=== PATIENT | male | born 1980 | race Caucasian/White ===

== ENCOUNTER 2016-08-03 15:12 | Emergency (ER) | payer BC, OTHER ==
[2016-08-03 15:16] VITALS: BP 141/80; PULSE 91; TEMP 98; BMI 21.1
[2016-08-03] MEDS ORDERED: KETOROLAC TROMETHAMINE 60 MG/2 ML VIAL ONE (16:20)
[2016-08-03] MEDS ORDERED: predniSONE 20 MG TABLET (UD) ONE (16:20)
[2016-08-03] MEDS ORDERED: CYCLOBENZAPRINE HCL 10 MG TABLET (FP) ONE (16:20)
[2016-08-03] MEDS ORDERED: CYCLOBENZAPRINE HCL 10 MG TABLET (FP) PO ONE (16:22)
[2016-08-03] MEDS ORDERED: predniSONE 20 MG TABLET (UD) PO ONE (16:22)
[2016-08-03] MEDS ORDERED: KETOROLAC TROMETHAMINE 60 MG/2 ML VIAL IM ONE (16:22)
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
== END 2016-08-03 16:46 | disposition home or self-care (01) ==
LOC: JERFT 15:12
PROC: 3E0233Z Introduction of Anti-inflammatory into Muscle, Percutaneous Approach (ICD-10-PCS; principal; 2016-08-03)
DX: M54.5 Low back pain (principal); G89.29 Other chronic pain; V89.2XXS Person injured in unspecified motor-vehicle accident, traffic, sequela
CPT/HCPCS: 99281-25

== ENCOUNTER 2016-09-02 08:47 | Emergency (ER) | payer BC, OTHER ==
[2016-09-02 08:54] VITALS: BMI 21.1
[2016-09-02] MEDS ORDERED: morphine CARPU-JECT 4 MG/1 ML DISP.SYRIN ONE (09:16)
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
[2016-09-02] MEDS ORDERED: morphine CARPU-JECT 4 MG/1 ML DISP.SYRIN IVPUSH ONE (09:20)
[2016-09-02 09:38] LABS: BASOPHIL 0.4 % (0-2.0); EOSINOPHIL 1.7 % (0-4.5); MCH 32.1 pg (25.7-33.7); MCHC 34.4 g/dl (32.0-35.9); MEAN CELL VOLUME 93.1 fl (80-96); MEAN PLT VOLUME 8.1 fl (7.5-11.1); PLATELET COUNT 273 K/MM3 (134-434); RDW 12.6 % (11.9-15.9); WHITE BLOOD COUNT 7.2 K/mm3 (4.0-10.0)
[2016-09-02 10:00] LABS: ALBUMIN 4.6 g/dl (3.4-5.0); ANION GAP 8 (8-16); CALCIUM 9.4 mg/dL (8.5-10.1); CO2 29 mmol/L (21-32); COCKROFT - GAULT 79.63; CREATININE 1.1 mg/dL (0.7-1.3); GLUCOSE,RANDOM 81 mg/dL (74-106); SGOT/AST 28 U/L (15-37); SGPT/ALT 26 U/L (12-78)
[2016-09-02 10:02] LABS: ALK PHOS 76 U/L (45-117); BILIRUBIN,TOTAL 0.5 mg/dL (0.2-1.0); TOT PROT 7.8 g/dl (6.4-8.2)
[2016-09-02 10:07] LABS: INR 0.98 (0.82-1.09); PROTHROMBIN TIME (PATIENT) 10.8 SEC (9.98-11.88)
[2016-09-02] MEDS ORDERED: HYDROmorphone HCL CARPU-JECT 1 MG/1 ML DISP.SYRIN IVPUSH ONE ×5 (10:39→17:16)
[2016-09-02] MEDS ORDERED: HYDROmorphone HCL CARPU-JECT 2 MG/1 ML DISP.SYRIN ONE (10:44)
[2016-09-02] MEDS ORDERED: SODIUM CHLORIDE 1,000 ML IV STA (10:58)
[2016-09-02] MEDS ORDERED: HYDROmorphone HCL CARPU-JECT 1 MG/1 ML DISP.SYRIN ONE ×3 (13:18→17:19)
[2016-09-02 15:37] VITALS: PULSE 84; TEMP 98
[2016-09-02] MEDS ORDERED: LIDOCAINE 1%/EPI 1:100000 (50 ML MULTI DOSE VIAL) ONE (16:10)
[2016-09-02 16:34] LABS: URINE APPEARANCE CLEAR; URINE BILIRUBIN NEGATIVE (NEGATIVE); URINE BLOOD NEGATIVE (NEGATIVE); URINE COLOR STRAW; URINE GLUCOSE (UA) NEGATIVE (NEGATIVE); URINE KETONE NEGATIVE (NEGATIVE); URINE LEUK ESTERASE NEGATIVE (NEGATIVE); URINE NITRITE NEGATIVE (NEGATIVE); URINE PROTEIN NEGATIVE (NEGATIVE); URINE UROBILINOGEN NEGATIVE E.U./dl (0.2-1.0)
[2016-09-02 18:29] VITALS: BP 139/95
== END 2016-09-02 18:29 | disposition home or self-care (01) ==
LOC: JER 08:47
PROC: 0HQ1XZZ Repair Face Skin, External Approach (ICD-10-PCS; principal; 2016-09-02)
PROC: 2W3FX1Z Immobilization of Left Hand using Splint (ICD-10-PCS; 2016-09-02)
PROC: 3E033NZ Introduction of Analgesics, Hypnotics, Sedatives into Peripheral Vein, Percutaneous Approach (ICD-10-PCS; 2016-09-02)
PROC: 3E0337Z Introduction of Electrolytic and Water Balance Substance into Peripheral Vein, Percutaneous Approach (ICD-10-PCS; 2016-09-02)
DX: S52.124A Nondisplaced fracture of head of right radius, initial encounter for closed fracture (principal); S52.134A Nondisplaced fracture of neck of right radius, initial encounter for closed fracture; S01.81XA Laceration without foreign body of other part of head, initial encounter; V89.9XXA Person injured in unspecified vehicle accident, initial encounter; M54.5 Low back pain; Y93.89 Activity, other specified; Y92.219 Unspecified school as the place of occurrence of the external cause; Y99.0 Civilian activity done for income or pay
CPT/HCPCS: 36415; 70450-TC; 71250-TC; 72125-TC; 72131-TC; 73030-TC-LT; 73090-TC-RT; 73110-TC-RT; 73130-TC-RT; 73552-TC-RT; 73560-TC-RT; 73590-TC-RT; 74176-TC; 80053; 81003; 85025; 85610; 86850; 86900; 86901; 99285-25

== ENCOUNTER 2018-08-03 12:16 | Emergency (ER) | payer BC, OTHER ==
[2018-08-03 12:43] VITALS: BMI 21.1
[2018-08-03] MEDS ORDERED: SODIUM CHLORIDE 1,000 ML IV STA ×2 (13:06→14:27)
[2018-08-03] MEDS ORDERED: ACETAMINOPHEN 1000 MG/100 ML VIAL (NON FORMULARY) IVPB ONE (13:06)
--- NOTE | 2018-08-03 13:24 | PDOC ---
*Physical Exam - Vital Signs Last Vital Signs Temp Pulse Resp BP Pulse Ox 99.7 F H 100 H 18 153/96 98 08/03/18 12:41 08/03/18 12:41 08/03/18 12:41 08/03/18 12:41 08/03/18 12:41 ED Treatment Course - LABORATORY CBC & Chemistry Diagram: 08/03/18 13:55 08/03/18 13:55 Medical Decision Making - Medical Decision Making 08/03/18 13:18 Pt seen by the Advanced Practice Provider under my direct supervision Ancillary studies reviewed I agree with plan as outlined by the Advanced Practice Provider OLGA LIDIA Coles *DC/Admit/Observation/Transfer Diagnosis at time of Disposition: Abdominal pain - Discharge Dispostion Disposition: HOME Condition at time of disposition: Improved - Prescriptions Prescriptions: Ibuprofen [Motrin -] 600 mg PO TID PRN #21 tablet PRN Reason: Pain Ondansetron HCl [Zofran] 4 mg PO TID PRN #12 tablet PRN Reason: Nausea And/Or Vomiting - Referrals - Patient Instructions Printed Discharge Instructions: DI for Abdominal Pain-Adult Additional Instructions: At this time I'm recommending to follow bland diet for the next 48 hours and take Zofran as needed for nausea. I also recommend taking Motrin 600 mg every 8 hours for adequate pain and fever control. Please take Nasonex or other nasal spray for nasal congestion to keep nasal passages clear. - Post Discharge Activity Forms/Work/School Notes: Back to Work
[2018-08-03] MEDS ORDERED: ACETAMINOPHEN INJECTION 100 ML IVPB ONE (13:55)
[2018-08-03 14:01] LABS: BASO % 0.1 % (0-2.0); HEMATOCRIT 49.1 % (35.4-49); HEMOGLOBIN 16.3 GM/dL (11.7-16.9); LYMPH % 2.9 % (8-40); MCH 31.3 pg (25.7-33.7); MCHC 33.1 g/dl (32.0-35.9); MEAN CELL VOLUME 94.5 fl (80-96); MEAN PLT VOLUME 8.3 fl (7.5-11.1); MONO % 4.4 % (3.8-10.2); NEUT % 92.6 % (42.8-82.8); PLATELET COUNT 269 K/MM3 (134-434); RDW 12.4 % (11.9-15.9); WHITE BLOOD COUNT 18.7 K/mm3 (4.0-10.0)
[2018-08-03 14:11] LABS: EPI CELLS 0.4 /HPF (0-5/HPF); PH,URINE 5.5 (5.0-8.0); URINE APPEARANCE CLEAR; URINE BACTERIA 2.9 /hpf (NEGATIVE); URINE BILIRUBIN NEGATIVE (NEGATIVE); URINE CASTS 3 /lpf (0-8); URINE COLOR YELLOW; URINE GLUCOSE (UA) NEGATIVE (NEGATIVE); URINE KETONE 3+ (NEGATIVE); URINE LEUK ESTERASE NEGATIVE (NEGATIVE); URINE NITRITE NEGATIVE (NEGATIVE); URINE PROTEIN NEGATIVE (NEGATIVE); URINE RBC 1 /hpf (0-4); URINE WBC 1 /hpf (0-5)
--- NOTE | 2018-08-03 14:34 | PDOC ---
History of Present Illness - General Chief Complaint: Rectal Bleed Stated Complaint: FEVER, VOMITING/ COUGHING Time Seen by Provider: 08/03/18 13:05 History Source: Patient Exam Limitations: No Limitations - History of Present Illness Travel History: No Initial Comments: 08/03/18 14:02 37-year-old male with no Past medical to presents to ED with complaints of nasal congestion and cough for the past few weeks intermittently. Patient states though for the past week now has lower abdominal pain associate fever, chills and has had 2 bowel movements with blood streaked stool and it. Patient denies hemorrhoids, GI history, recent travel, recent weight change. Patient states also has coughed up sputum along with food products but denies throat pain, headache chest pain or shortness of breath. Timing/Duration: reports: changing over time Quality: reports: moderate Abdominal Pain Onset Location: reports: RLQ, LLQ Past History - Past Medical History Allergies/Adverse Reactions: Allergies Allergy/AdvReac Type Severity Reaction Status Date / Time No Known Allergies Allergy Verified 08/03/18 12:40 Home Medications: Ambulatory Orders Ibuprofen 600 mg PO TID #20 tablet 09/02/16 Oxycodone HCl/Acetaminophen [Percocet 5-325 mg Tablet] 1 tab PO Q6H PRN #8 tablet MDD 4 09/02/16 Ibuprofen [Motrin -] 600 mg PO TID PRN #21 tablet 08/03/18 Ondansetron HCl [Zofran] 4 mg PO TID PRN #12 tablet 08/03/18 COPD: No - Family Disease History Family Disease History: Heart Disease: Grandparents - Immunization History Immunization Up to Date: No - Suicide/Smoking/Psychosocial Hx Smoking History: Current some day smoker Have you smoked in the past 12 months: No Information on smoking cessation initiated: No Hx Alcohol Use: No Drug/Substance Use Hx: No Substance Use Type: Alcohol Patient Lives Alone: No Lives with/in: spouse/SO Review of Systems - Review of Systems Able to Perform ROS?: Yes Constitutional: Yes: Fever, Weakness HEENTM: Yes: Nose Congestion Respiratory: Yes: Cough Cardiac (ROS): No: Symptoms Reported ABD/GI: Yes: Blood Streaked Bowels, Diarrhea, Poor Appetite, Poor Fluid Intake, Abdominal cramping : No: Symptoms Reported Musculoskeletal: No: Symptoms Reported Integumentary: No: Symptoms Reported Neurological: Yes: Weakness Endocrine: No: Symptoms Reported Hematologic/Lymphatic: No: Symptoms Reported *Physical Exam - Vital Signs Last Vital Signs Temp Pulse Resp BP Pulse Ox 99.7 F H 100 H 18 153/96 98 08/03/18 12:41 08/03/18 12:41 08/03/18 12:41 08/03/18 12:41 08/03/18 12:41 - Physical Exam General Appearance: Yes: Nourished, Appropriately Dressed. No: Apparent Distress HEENT: positive: EOMI, TANO, TMs Normal, Nasal Congestion, Rhinorrhea. negative : Pharynx Normal Neck: positive: Supple Respiratory/Chest: positive: Lungs Clear, Normal Breath Sounds. negative: Respiratory Distress, Accessory Muscle Use Cardiovascular: positive: Regular Rhythm, Tachycardia. negative: Murmur Gastrointestinal/Abdominal: positive: Soft, Tenderness (right lower and left lower quadrant) Male Genitalia: positive: normal genitalia Musculoskeletal: negative: CVA Tenderness Extremity: positive: Normal Inspection Integumentary: positive: Normal Color, Warm, Moist Neurologic: positive: Motor Strength 5/5 (ambulatory) ED Treatment Course - LABORATORY CBC & Chemistry Diagram: 08/03/18 13:55 08/03/18 13:55 - ADDITIONAL ORDERS Additional order review: Laboratory Results 08/03/18 08/03/18 14:00 13:55 Lactic Acid 1.0 Urine Color Yellow Urine Appearance Clear Urine pH 5.5 Ur Specific Urania 1.022 Urine Protein Negative Urine Glucose (UA) Negative Urine Ketones 3+ H Urine Blood Trace Urine Nitrite Negative Urine Bilirubin Negative Urine Urobilinogen 1.0 Ur Leukocyte Esterase Negative Urine WBC (Auto) 1 Urine RBC (Auto) 1 Urine Casts (Auto) 3 U Epithel Cells (Auto) 0.4 Urine Bacteria (Auto) 2.9 08/03/18 13:55 RBC 5.20 MCV 94.5 MCHC 33.1 RDW 12.4 MPV 8.3 Neutrophils % 92.6 H D Lymphocytes % 2.9 L D Monocytes % 4.4 Eosinophils % 0.0 D Basophils % 0.1 - RADIOLOGY Radiology Studies Ordered: Category Date Time Status ABDOMEN & PELVIS CT WITH CONTR [CT] Stat CT Scan 08/03/18 13:06 Ordered - Medications Given in the ED: ED Medications Discontinued Medications Generic Name Dose Route Start Last Admin Trade Name Freq PRN Reason Stop Dose Admin Acetaminophen 1,000 mg 08/03/18 13:06 08/03/18 13:50 Ofirmev Injection - IVPB 08/03/18 13:07 1,000 mg ONCE ONE Administration Sodium Chloride 1,000 mls @ 1,000 mls/hr 08/03/18 13:06 08/03/18 13:50 Normal Saline - IV 08/03/18 14:05 1,000 mls/hr ASDIR STA Administration Medical Decision Making - Medical Decision Making 08/03/18 14:03 Complaint: URI symptoms now with GI complaints including diarrhea and abdominal pain along with fever and chills Exam: Tachycardia and low-grade temperature lower abdominal tenderness Plan: Septic workup, fluids, IV Tylenol and abdominal CT 08/03/18 14:45 Laboratory Tests 08/03/18 08/03/18 08/03/18 13:55 13:55 14:00 WBC 18.7 H Hgb 16.3 Hct 49.1 H Absolute Neuts (auto) 17.3 H Neutrophils % 92.6 H D Lactic Acid 1.0 Urine Ketones 3+ H Urine Nitrite Negative Urine Bilirubin Negative Ur Leukocyte Esterase Negative Urine WBC (Auto) 1 Urine RBC (Auto) 1 08/03/18 17:[address] shows no evidence of enterocolitis no evidence of acute diverticulitis or appendicitis. Patient states feeling better after receiving medication. Patient be discharged home with Zofran 08/03/18 18:05 States feeling somewhat better and tolerated of bagged lunch. Patient will be discharged home with Zofran and recommendations to follow bland diet for the next 48 hours. *DC/Admit/Observation/Transfer Diagnosis at time of Disposition: Abdominal pain - Discharge Dispostion Disposition: HOME Condition at time of disposition: Improved - Referrals - Patient Instructions Printed Discharge Instructions: DI for Abdominal Pain-Adult Additional Instructions: At this time I'm recommending to follow bland diet for the next 48 hours and take Zofran as needed for nausea. I also recommend taking Motrin 600 mg every 8 hours for adequate pain and fever control. Please take Nasonex or other nasal spray for nasal congestion to keep nasal passages clear. - Post Discharge Activity
[2018-08-03 15:05] LABS: ANISOCYTOSIS 0; MACROCYTOSIS 0; PLATELET ESTIMATE NORMAL
[2018-08-03 15:20] LABS: ALBUMIN 4.5 g/dl (3.4-5.0); BILIRUBIN,TOTAL 0.8 mg/dL (0.2-1); CALCIUM 9.2 mg/dL (8.5-10.1); CREATININE 0.9 mg/dL (0.55-1.3); MAGNESIUM 2.1 mg/dL (1.8-2.4); POTASSIUM 4.1 mmol/L (3.5-5.1); TOT PROT 8.1 g/dl (6.4-8.2)
[2018-08-03 18:31] VITALS: BP 114/66; PULSE 91; TEMP 98.7
== END 2018-08-03 18:33 | disposition home or self-care (01) ==
LOC: JER 12:16
PROC: 3E033NZ Introduction of Analgesics, Hypnotics, Sedatives into Peripheral Vein, Percutaneous Approach (ICD-10-PCS; principal; 2018-08-03)
PROC: 3E0337Z Introduction of Electrolytic and Water Balance Substance into Peripheral Vein, Percutaneous Approach (ICD-10-PCS; 2018-08-03)
DX: R10.9 Unspecified abdominal pain (principal)
CPT/HCPCS: 36415; 74177-TC; 80053; 81003; 83605; 83690; 83735; 85025; 87040; 87086; 99282-25; J0131; J7030

== ENCOUNTER 2018-11-04 08:16 | Emergency (ER) | payer BC ==
[2018-11-04 08:31] VITALS: BMI 21.2
[2018-11-04] MEDS ORDERED: ACETAMINOPHEN 325 MG TABLET (FP) PO ONE (09:36)
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
[2018-11-04 09:54] VITALS: TEMP 98.1
[2018-11-04 10:52] VITALS: BP 130/78; PULSE 62
== END 2018-11-04 10:52 | disposition home or self-care (01) ==
LOC: JER 08:16
PROC: 0HQ1XZZ Repair Face Skin, External Approach (ICD-10-PCS; principal; 2018-11-04)
DX: S01.81XA Laceration without foreign body of other part of head, initial encounter (principal); W18.39XA Other fall on same level, initial encounter; Y93.89 Activity, other specified; Y92.89 Other specified places as the place of occurrence of the external cause; F32.9 Major depressive disorder, single episode, unspecified; Z87.891 Personal history of nicotine dependence
CPT/HCPCS: 70450-TC; 71046-TC-FY; 99282-25

== ENCOUNTER 2019-09-29 07:50 | Inpatient (IN) | payer BC ==
[2019-09-28 11:29] VITALS: BMI 20.2
[2019-09-29] MEDS ORDERED: ERTAPENEM SODIUM 1 GM VIAL ONE (08:25)
[2019-09-29] MEDS ORDERED: ERTAPENEM SODIUM 1 GM in SODIUM CHLORIDE 50 ML IVPB ONE (09:00)
[2019-09-29] MEDS ORDERED: MIDAZOLAM HCL 2 MG/2 ML SINGLE DOSE VIAL ONE ×2 (09:32)
[2019-09-29] MEDS ORDERED: BUPIVACAINE LIPOSOME/PF (EXPAREL) 266 MG/20 ML VIAL ONE ×2 (09:33→12:11)
[2019-09-29] MEDS ORDERED: BUPIVACAINE HCL/PF 0.25% (2.5MG/ML) 10 ML VIAL ONE (09:33)
[2019-09-29] MEDS ORDERED: PROPOFOL 20 ML ONE (10:18)
[2019-09-29] MEDS ORDERED: ROCURONIUM BROMIDE 50 MG/5 ML SYRINGE ONE (10:18)
[2019-09-29] MEDS ORDERED: fentaNYL CITRATE 250 MCG/5 ML VIAL ONE (10:18)
[2019-09-29] MEDS ORDERED: ERTAPENEM SODIUM 1 GM VIAL IVPB ONE (11:00)
[2019-09-29] MEDS ORDERED: KETAMINE HCL 200 MG/20 ML VIAL ONE (11:23)
[2019-09-29] MEDS ORDERED: HYDROmorphone HCl 2 MG/ML VIAL ONE (11:29)
[2019-09-29] MEDS ORDERED: NEOSTIGMINE METHYLSULFATE 0.5 MG/ML - 10 ML MDV ONE (12:20)
[2019-09-29] MEDS ORDERED: oxyCODONE HCL 5 MG TABLET PO PRN ×2 (12:33)
--- NOTE | 2019-09-29 12:39 | SURG ---
Surgery Top Trimmer Note Top Trimmer: Naresh Graham PA-C Date of Service: 09/29/19 Diagnosis: Colon cancer Procedure: Open closure ileostomy I was present for the entirety of the operative procedure. For further detail, please refer to operative report. Visit type - Case Type Case Type: Scheduled - Emergency Emergency Visit: No - New patient This patient is new to me today: Yes Date on this admission: 09/29/19 - Critical Care Critical Care patient: No
--- NOTE | 2019-09-29 12:39 | OP ---
Operative Note - Note: Operative Date: 09/29/19 Pre-Operative Diagnosis: colon cancer Operation: Open closure of Ileostomy Post-Operative Diagnosis: Same as Pre-op Surgeon: Tushar Gonzales Chief Specialist Leed: Naresh Graham Anesthesiologist/SHOE REPAIRER: Shane Morin Anesthesia: General Estimated Blood Loss (mls): 20 Operative Report Dictated: Yes
[2019-09-29] MEDS ORDERED: LACTATED RINGERS SOLUTION 1,000 ML IV SCH (12:45)
[2019-09-29] MEDS ORDERED: hydrALAZINE HCL 20 MG/ML VIAL ONE (12:47)
[2019-09-29] MEDS ORDERED: hydrALAZINE HCL 20 MG/ML VIAL IVPUSH ONE ×2 (12:55→13:19)
[2019-09-29] MEDS ORDERED: ONDANSETRON 4 MG/2 ML VIAL IVPUSH PRN ×2 (13:49→15:21)
[2019-09-29] MEDS ORDERED: METOPROLOL TARTRATE 5 MG/5 ML VIAL IVPUSH ONE ×2 (15:20→15:44)
[2019-09-29] MEDS ORDERED: PROMETHAZINE HCL 25 MG/1 ML VIAL IVPB PRN (15:21)
[2019-09-29] MEDS ORDERED: DEXAMETHASONE SOD PHOSPHATE 4 MG/1 ML VIAL IVPUSH PRN (15:21)
[2019-09-29] MEDS ORDERED: HYDROmorphone *PCA* 10MG/50ML DISP.SYRIN ONE (15:29)
[2019-09-29] MEDS ORDERED: HYDROmorphone *PCA* 10MG/50ML DISP.SYRIN PCA SCH (15:30)
[2019-09-29] MEDS ORDERED: HYDROmorphone *PCA* 10MG/50ML DISP.SYRIN PCA ONE (15:44)
[2019-09-30] MEDS ORDERED: ACETAMINOPHEN 1000 MG/100 ML VIAL (NON FORMULARY) IVPB ONE (05:41)
[2019-09-30 08:47] LABS: HEMATOCRIT 39.8 % (35.4-49); MCHC 32.7 g/dl (32.0-35.9); MEAN CELL VOLUME 94.9 fl (80-96); PLATELET COUNT 177 K/MM3 (134-434); RDW 12.9 % (11.9-15.9); WHITE BLOOD COUNT 8.3 K/mm3 (4.0-10.0)
--- NOTE | 2019-09-30 09:00 | PN ---
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 Much relieved. No other complications seen. Flaquita Hilton MD.
--- NOTE | 2019-09-30 09:03 | HP ---
Admitting History and Physical - Admission History of Present Illness: postop ileostomy closure - Past Medical History Cardiovascular: No: CAD, CHF, HTN Pulmonary: No: COPD Gastrointestinal: Yes: Cancer (colon) Renal/: Yes: Cancer (testicular) - Past Surgical History Past Surgical History: Yes: Colectomy, Orchiectomy - Smoking History Smoking history: Former smoker Have you smoked in the past 12 months: Yes Aproximately how many cigarettes per day: 4 If you are a former smoker, when did you quit?: 2019 - Alcohol/Substance Use Hx Alcohol Use: No Home Medications - Allergies Allergies/Adverse Reactions: Allergies Allergy/AdvReac Type Severity Reaction Status Date / Time No Known Allergies Allergy Verified 09/29/19 08:53 - Home Medications Home Medications: Ambulatory Orders Cyclobenzaprine HCl [Flexeril 10 mg] 10 mg PO PRN PRN 07/30/19 Colostomy-Ileost.set,Nonsteril [New Image Colostomy-Ileo Kit] 30 each MC DAILY #30 each 08/09/19 Review of Systems - Review of Systems Cardiovascular: denies: Chest Pain, Palpitations Respiratory: denies: Orthopnea, SOB Gastrointestinal: reports: Abdominal Pain Neurological: reports: No Symptoms Physical Examination Vital Signs: Vital Signs Temperature 99 F 09/30/19 08:29 Pulse Rate 60 09/30/19 08:29 Respiratory Rate 18 09/30/19 08:29 Blood Pressure 135/82 09/30/19 08:29 O2 Sat by Pulse Oximetry (%) 100 09/29/19 21:00 Cardiovascular: Yes: Regular Rate and Rhythm Respiratory: Yes: Regular, CTA Bilaterally Gastrointestinal: Yes: Soft, Hypoactive Bowel Sounds Wound/Incision: Yes: Other (dressing with some blood) Labs: CBC, BMP 09/30/19 07:17 Problem List - Problems (1) Colon cancer Assessment/Plan: Operative Date: 09/29/19 Pre-Operative Diagnosis: colon cancer Operation: Open closure of Ileostomy Post-Operative Diagnosis: Same as Pre-op Surgeon: Tushar Gonzales diet per surgery follow labs Code(s): C18.9 - MALIGNANT NEOPLASM OF COLON, UNSPECIFIED (2) Ileostomy status Assessment/Plan: Operative Date: 09/29/19 Pre-Operative Diagnosis: colon cancer Operation: Open closure of Ileostomy Post-Operative Diagnosis: Same as Pre-op Surgeon: Tushar Gonzales Code(s): Z93.2 - ILEOSTOMY STATUS (3) Back pain Assessment/Plan: monitor Code(s): M54.9 - DORSALGIA, UNSPECIFIED Qualifiers: Back pain location: low back pain Chronicity: chronic Back pain laterality: right Sciatica presence: with sciatica Sciatica laterality: sciatica of right side Qualified Code(s): M54.41 - Lumbago with sciatica, right side
[2019-09-30 09:19] LABS: ALBUMIN 3.5 g/dl (3.4-5.0); BILIRUBIN,TOTAL 0.9 mg/dL (0.2-1); BLOOD UREA NITROGEN 8.2 mg/dL (7-18); CALCIUM 8.4 mg/dL (8.5-10.1); CREATININE 0.7 mg/dL (0.55-1.3); POTASSIUM 3.3 mmol/L (3.5-5.1)
[2019-09-30] MEDS: ENOXAPARIN NA (PORCINE) 40 MG/0.4 ML DISP.SYRIN SQ SCH (09:29)
--- NOTE | 2019-09-30 11:19 | PN ---
Progress Note (short form) - Note Progress Note: Surgery Note: No complaints of nausea/emesis. ABd pain controlled with PANCAKE PROFESSIONAL. Vital Signs Period Temp Pulse Resp BP Sys/Calderon Pulse Ox Last 24 Hr 98.0 F-99 F 60-118 16-18 112-160/64-110 98-100 GEN: A&0x3, NAD ABD: soft, non-distended, inc tenderness. Incision, packing removed and bleeding noted from a skin edge. Applied silver nitrite and bleeding stopped, packed with gauze and applied pressure dressing. LE: no calf tenderness or swelling noted b/l CBC, BMP 09/30/19 07:17 09/30/19 07:17 A/P: 39 yo male s/p ileostomy reversal, POD#1 May begin clears OOB ambulate Packed wound with gauze/apply abdominal binder Oral/IV pain meds after tolerating clears Hypokalemia, KCL repleted oral with 40 meq D/w Dr. Cervantes
[2019-09-30] MEDS ORDERED: POTASSIUM CHLORIDE TABS 20 MEQ TABLET.ER (FP) PO ONE (11:25)
[2019-09-30] MEDS: ACETAMINOPHEN 325 MG TABLET (FP) PO PRN ×3 (11:58→21:10)
[2019-09-30] MEDS ORDERED: oxyCODONE HCL 5 MG TABLET PO PRN (14:26)
[2019-09-30] MEDS ORDERED: PCA PUMP NR ONE (14:55)
[2019-09-30] MEDS: oxyCODONE HCL 5 MG TABLET PO PRN ×2 (17:00→21:09)
[2019-10-01] MEDS: oxyCODONE HCL 5 MG TABLET PO PRN (06:48)
[2019-10-01] MEDS: ACETAMINOPHEN 325 MG TABLET (FP) PO PRN (06:48)
--- NOTE | 2019-10-01 08:26 | PN ---
Progress Note, Physician Chief Complaint: s/p closure of eliostomy History of Present Illness: feeling well BMs x3 - Current Medication List Current Medications: Active Medications Acetaminophen (Tylenol -) 650 mg PO Q4H PRN PRN Reason: FEVER Last Admin: 10/01/19 06:48 Dose: 650 mg Documented by: Dexamethasone Sodium Phosphate (Decadron Injection -) 4 mg IVPUSH ONCE PRN PRN Reason: NAUSEA AND/OR VOMITING Diphenhydramine HCl (Benadryl Injection -) 12.5 mg IVPUSH ONCE PRN PRN Reason: FOR ITCHING Enoxaparin Sodium (Lovenox -) 40 mg SQ DAILY [id number] Last Admin: 09/30/19 09:29 Dose: 40 mg Documented by: Ondansetron HCl (Zofran Injection) 4 mg IVPUSH Q4H PRN PRN Reason: NAUSEA AND/OR VOMITING Oxycodone HCl (Roxicodone -) 5 mg PO Q4H PRN PRN Reason: PAIN LEVEL 1-5 Oxycodone HCl (Roxicodone -) 10 mg PO Q4H PRN PRN Reason: PAIN LEVEL 6-10 Last Admin: 10/01/19 06:48 Dose: 10 mg Documented by: Promethazine HCl (Phenergan Injection -) 12.5 mg IVPB Q6H PRN PRN Reason: NAUSEA AND/OR VOMITING - Objective Vital Signs: Vital Signs Temperature 98.7 F 10/01/19 06:00 Pulse Rate 80 10/01/19 06:00 Respiratory Rate 18 10/01/19 06:00 Blood Pressure 135/89 10/01/19 06:00 O2 Sat by Pulse Oximetry (%) 100 09/30/19 21:00 Labs: CBC, BMP 09/30/19 07:17 09/30/19 07:17 Problem List - Problems (1) Colon cancer Code(s): C18.9 - MALIGNANT NEOPLASM OF COLON, UNSPECIFIED (2) Ileostomy status Code(s): Z93.2 - ILEOSTOMY STATUS Assessment/Plan s/p closure of eliostomy doing well Advance diet DC home this pm with VNS
[2019-10-01 09:18] LABS: BASO % 0.4 % (0-2.0); EOS % 0.2 % (0-4.5); HEMOGLOBIN 13.2 GM/dL (11.7-16.9); LYMPH % 10.2 % (8-40); MCH 31.3 pg (25.7-33.7); MCHC 33.1 g/dl (32.0-35.9); MEAN CELL VOLUME 94.6 fl (80-96); MEAN PLT VOLUME 8.3 fl (7.5-11.1); MONO % 9.8 % (3.8-10.2); NEUT % 79.4 % (42.8-82.8); PLATELET COUNT 169 K/MM3 (134-434); RBC 4.22 M/mm3 (4.00-5.60); RDW 12.8 % (11.9-15.9); WHITE BLOOD COUNT 7.4 K/mm3 (4.0-10.0)
[2019-10-01 09:48] LABS: BLOOD UREA NITROGEN 4.2 mg/dL (7-18); CALCIUM 8.8 mg/dL (8.5-10.1); CREATININE 0.7 mg/dL (0.55-1.3); POTASSIUM 3.2 mmol/L (3.5-5.1)
[2019-10-01] MEDS: ENOXAPARIN NA (PORCINE) 40 MG/0.4 ML DISP.SYRIN SQ SCH (10:08)
[2019-10-01 10:21] VITALS: TEMP 98.2
--- NOTE | 2019-10-01 11:38 | OP ---
DATE OF OPERATION: 09/29/2019 PREOPERATIVE DIAGNOSIS: Rectal cancer status post low anterior resection with ileostomy. POSTOPERATIVE DIAGNOSIS: Rectal cancer status post low anterior resection with ileostomy. PROCEDURE: Closure of ileostomy. SURGEON: Tushar Hardin MD ANESTHESIA: Naresh Graham PA-C COMPLICATIONS: None. BLOOD LOSS: Minimal, and the patient tolerated the procedure well. INDICATION: This is a 39-year-old male who presented with a rectal cancer for which he underwent preoperative neoadjuvant chemoradiation therapy followed by low anterior resection which was performed at a time in July, with a diverting ileostomy. Following that, the patient has continued to recover well. He underwent a CT scan and a barium enema to evaluate anastomosis, and at this point, given the well-healed anastomosis, he is now undergoing a closure of the ileostomy. DESCRIPTION OF PROCEDURE: He was taken to the operating room, placed in the supine position. After the induction of general anesthesia, he was prepped and draped in the usual sterile fashion. The procedure was begun with a circumferential incision around the ileostomy. Of note, the mucosa was approximated with 2-0 silk to prevent spillage into the wound during the operation. With mobilization of the skin and the subcutaneous tissue, loop ileostomy was then mobilized along with its mesentery, and sharp dissection with Metzenbaum scissors was performed to separate some dense adhesions from the fascia. This allowed us to then eventually enter into the peritoneal cavity, bringing up the whole loop of terminal ileum into the field. The end of the ileostomy itself was then transected with ASIF staplers on both side of the lumen and resected. The mesentery was divided with 2 Radha clamps and ligated with 2-0 Vicryl ties. A [id number] anastomosis was then performed using the ASIF 60, which was fired , and enterotomy was closed with a TA60. The staple line was oversewn with 3-0 Vicryl, 3-0 silk Lembert sutures, and the mesentery defect was approximated with 3-0 Vicryl interrupted sutures. The anastomosis was then delivered back into the peritoneal cavity after careful inspection for signs of integrity, and the wound was then closed by closing the posterior sheath with 0 Vicryl suture in a running fashion, and the anterior fascia was closed with No. 1 PDS in interrupted fashion. The wound was irrigated and suctioned. Two nylon mattress sutures were placed in the skin to approximate the wound without completely closing it, and the wound was packed after careful hemostasis. Sterile dressing was applied and the patient was returned to the recovery room awake and alert, in stable condition. He tolerated the procedure well. TUSHAR HARDIN M.D. [id number]
--- NOTE | 2019-10-01 12:28 | DS ---
"Physical Examination Vital Signs: Vital Signs Temperature 98.2 F 10/01/19 10:20 Pulse Rate 79 10/01/19 10:20 Respiratory Rate 18 10/01/19 10:20 Blood Pressure 154/82 10/01/19 10:20 O2 Sat by Pulse Oximetry (%) 99 10/01/19 08:46 Cardiovascular: Yes: Regular Rate and Rhythm Respiratory: Yes: Regular, CTA Bilaterally Gastrointestinal: Yes: Normal Bowel Sounds, Soft. No: Tenderness Labs: CBC, BMP 10/01/19 07:50 10/01/19 07:50 Discharge Summary Reason For Visit: OTHER SPECIFIED DISEASES OF ANUS & RECTUM Current Active Problems Colon cancer (Acute) Ileostomy status (Acute) Hospital Course: - Problems (1) Colon cancer Assessment/Plan: Operative Date: 09/29/19 Pre-Operative Diagnosis: colon cancer Operation: Open closure of Ileostomy Post-Operative Diagnosis: Same as Pre-op Surgeon: Tushar Gonzales diet per surgery follow labs Code(s): C18.9 - MALIGNANT NEOPLASM OF COLON, UNSPECIFIED (2) Ileostomy status Assessment/Plan: Operative Date: 09/29/19 Pre-Operative Diagnosis: colon cancer Operation: Open closure of Ileostomy Post-Operative Diagnosis: Same as Pre-op Surgeon: Tushar Gonzales Code(s): Z93.2 - ILEOSTOMY STATUS (3) Back pain Assessment/Plan: monitor Code(s): M54.9 - DORSALGIA, UNSPECIFIED Qualifiers: Back pain location: low back pain Chronicity: chronic Back pain lateral ity: right Sciatica presence: with sciatica Sciatica laterality: sciatica of right side Qualified Code(s): M54.41 - Lumbago with sciatica, right side Condition: Stable - Instructions Diet, Activity, Other Instructions: Dr. Gonzales's Discharge Instructions Physical activity Resume your normal everyday activity as tolerated no heavy lifting or exercise until seen by your surgeon. You may walk unlimited amounts of and climb stairs. You may resume driving the car when you feel safe and comfortable behind the wheel and no longer taking narcotics. Wound care Irrigate with NS and Pack wound with wet to dry dressing. Your leatha will be removed during your office visit. Diet There are no dietary restrictions. Eat healthy, high-fiber foods. Drink 6 to 8 glasses of liquid each day. This will assist in keeping your bowels are regular. Pain management You may take Tylenol or acetaminophen or Ibuprofen (for example, Motrin, Advil etc.) Any pain prescription medication ordered should be taken as prescribed for moderate to severe pain. Call Dr. Gonzales for any of the following: Severe pain not relieved by medication Fever of 101 or higher Excessive bleeding or drainage on dressing Inability to urinate If you experience any chest pain or shortness of breath please seek emergency treatment immediately. Call the office for a post operative appointment in 7 - 10 days. iSTOP The Drug Utilization Report below displays all of the controlled substance prescriptions, if any, that your patient has filled in the last twelve months. The information displayed on this report is compiled from pharmacy submissions to the Department, and accurately reflects the information as submitted by the pharmacies. This report was requested by: Shivam Montgomery | Reference #: [id number] Follow up with dr cai for labs to check potassium Referrals: Tushar Gonzales [Staff Physician] - Kate Cai MD [Staff Physician] - 2 Weeks Disposition: HOME - Home Medications Comprehensive Discharge Medication List: Ambulatory Orders Oxycodone HCl/Acetaminophen [Percocet 5-325 mg Tablet] 1 - 2 tab PO Q4H PRN #25 tablet MDD 12 10/01/19"
[2019-10-01] MEDS ORDERED: POTASSIUM CHLORIDE TABS 10 MEQ TABLET.ER (FP) PO ONE (12:30)
[2019-10-01 13:52] VITALS: BP 134/93; PULSE 109
--- NOTE | 2019-10-04 11:33 | PATH ---
Surgical Pathology Report Patient Name: ULISES AMBROCIO Med. Rec. #: [id number] /Age/Gender: 1980 (Age: 39) / M Account: [id number] Location: [address] [place] [address]/[facility] Taken: 09/29/2019 Received: 09/29/2019 Reported: 10/04/2019 Physicians: Tushar Gonzales M.D. Specimen(s) Received ILEOSTOMY Clinical History Closing of ileostomy Final Diagnosis ILEOSTOMY, RESECTION: PORTION OF SMALL INTESTINE AND SKIN CONSISTENT WITH ILEOSTOMY SHOWING FOCAL ACUTE AND CHRONIC INFLAMMATION, HEMORRHAGE, AND SUPERFICIAL EROSION. Electronically Signed Aydin Solano M.D. Gross Description Received in formalin labeled "ileostomy," is a 4.0 x 2.7 cm nair, elliptical portion of skin with two ora, consistent with ileostomy sites. There is a 5 cm in length portion of bowel attached to each of the ileostomy sites. The bowels have stapled margins of resection. Lens Silverer sections are submitted in 3 cassettes as follows: 1-staple lines; 7-7-mnfqchhrh sites. /09/30/2019 [facility]09/30/2019
== END 2019-10-01 14:41 | disposition home or self-care (01) | DRG 330 ==
LOC: J2C 07:50 → EDSTATUS 10:30 → J6S 17:25
PROVIDERS: ADMIT Surgery; ATTEND Family Medicine
PROC: 0DBB0ZZ Excision of Ileum, Open Approach (ICD-10-PCS; principal; 2019-09-29 10:30)
DX: C20 Malignant neoplasm of rectum (principal); C18.9 Malignant neoplasm of colon, unspecified; M54.41 Lumbago with sciatica, right side; E87.6 Hypokalemia
CPT/HCPCS: 36415; 80048; 80053; 85025; 85027; 86850; 86900; 86901; 88304-TC; 94760; J0131

== ENCOUNTER 2020-11-16 20:11 | Emergency (ER) | payer OTHER, BC ==
[2020-11-16 20:33] VITALS: BMI 19.5
[2020-11-16] MEDS ORDERED: morphine CARPU-JECT 4 MG/1 ML DISP.SYRIN IVPUSH ONE (23:19)
[2020-11-16] MEDS ORDERED: morphine SULFATE 4 MG/ML VIAL ONE (23:52)
[2020-11-17 00:58] VITALS: TEMP 97.4
[2020-11-17] MEDS ORDERED: ACETAMINOPHEN 500 MG TABLET (FP) PO ONE (04:24)
[2020-11-17] MEDS ORDERED: ACETAMINOPHEN 325 MG TABLET (FP) ONE (05:14)
[2020-11-17 05:21] VITALS: BP 113/80
[2020-11-17 07:22] VITALS: PULSE 57
== END 2020-11-17 07:23 | disposition home or self-care (01) ==
LOC: JER 20:11
PROC: 3E033NZ Introduction of Analgesics, Hypnotics, Sedatives into Peripheral Vein, Percutaneous Approach (ICD-10-PCS; principal; 2020-11-16)
DX: S06.0X9A Concussion with loss of consciousness of unspecified duration, initial encounter (principal); R52 Pain, unspecified; W19.XXXA Unspecified fall, initial encounter; Y92.9 Unspecified place or not applicable
CPT/HCPCS: 70450-TC; 72125-TC; 72128-TC; 72131-TC; 99285-25

== ENCOUNTER 2021-03-12 12:06 | Emergency (ER) | payer BC, OTHER ==
[2021-03-12 12:33] VITALS: BP 123/87; PULSE 68; TEMP 98.9; BMI 20.3
[2021-03-12 14:59] LABS: BASO % 0.5 % (0-2.0); EOS % 0.9 % (0-4.5); HEMATOCRIT 39.3 % (35.4-49); HEMOGLOBIN 13.4 GM/dL (11.7-16.9); MCH 32.3 pg (25.7-33.7); MCHC 34.2 g/dl (32.0-35.9); MEAN CELL VOLUME 94.5 fl (80-96); MEAN PLT VOLUME 8.4 fl (7.5-11.1); MONO % 8.9 % (3.8-10.2); NEUT % 68.7 % (42.8-82.8); PLATELET COUNT 218 10^3/uL (134-434); RBC 4.15 M/mm3 (4.00-5.60); RDW 12.7 % (11.9-15.9); WHITE BLOOD COUNT 4.6 K/mm3 (4.0-10.0)
[2021-03-12 15:05] LABS: INR 1.03 (0.83-1.09)
[2021-03-12 15:08] LABS: ACTIVATED PTT 31.7 SECONDS (25.2-36.5)
[2021-03-12 15:17] LABS: CHLORIDE 110 mmol/L (98-107); SODIUM 143 mmol/L (136-145)
[2021-03-12 15:20] LABS: ANION GAP 6 MMOL/L (8-16); BLOOD UREA NITROGEN 15.4 mg/dL (7-18); CALCIUM 8.8 mg/dL (8.5-10.1); CO2 28 mmol/L (21-32); GLUCOSE,RANDOM 84 mg/dL (74-106); MAGNESIUM 2.3 mg/dL (1.8-2.4)
[2021-03-12 15:23] LABS: CREATININE 0.9 mg/dL (0.55-1.3); SGOT/AST 32 U/L (15-37); SGPT/ALT 30 U/L (13-61)
[2021-03-12 15:25] LABS: BILIRUBIN,TOTAL 0.6 mg/dL (0.2-1); TOT PROT 6.9 g/dl (6.4-8.2)
[2021-03-12 15:31] LABS: ALK PHOS 70 U/L (45-117)
== END 2021-03-12 16:39 | disposition home or self-care (01) ==
LOC: JER 12:06
DX: R07.89 Other chest pain (principal)
CPT/HCPCS: 36415; 71046-TC-FY; 80053; 82550; 82553; 83735; 84484; 85025; 85379; 85610; 85730; 93005; 93010; 99285-25; C9803; U0003; U0005

== ENCOUNTER 2023-12-29 08:07 | Emergency (ER) | payer BC ==
[2023-12-29 08:12] VITALS: BMI 51.7
[2023-12-29] MEDS ORDERED: ACETAMINOPHEN INJECTION 100 ML ONE (08:28)
[2023-12-29] MEDS ORDERED: FAMOTIDINE 20 MG/50 ML IVPB 20 MG/50 ML MG IVPB ONE (08:28)
[2023-12-29] MEDS ORDERED: ONDANSETRON 4 MG/2 ML VIAL ONE (08:28)
[2023-12-29] MEDS: SODIUM CHLORIDE 0.9% 500 ML INFUS.BAG IV ONE (08:46)
[2023-12-29] MEDS: ONDANSETRON 4 MG/2 ML VIAL IVPUSH ONE (08:47)
[2023-12-29] MEDS: ACETAMINOPHEN 1000 MG/100 ML BAG IVPB ONE (08:47)
[2023-12-29] MEDS: FAMOTIDINE 20 MG/50 ML IVPB 20 MG/50 ML MG IVPB ONE (08:47)
[2023-12-29 08:56] LABS: BASO % 0.4 % (0-2.0); HEMATOCRIT 48.2 % (35.4-49); HEMOGLOBIN 16.4 GM/dL (11.7-16.9); LYMPH % 8.1 % (8-40); MCHC 34.1 g/dl (32.0-35.9); MEAN CELL VOLUME 96.8 fl (80-96); MEAN PLT VOLUME 8.2 fl (7.5-11.1); MONO % 6.4 % (3.8-10.2); NEUT % 85.1 % (42.8-82.8); PLATELET COUNT 327 10^3/uL (134-434); RBC 4.98 M/mm3 (4.00-5.60); RDW 12.3 % (11.9-15.9); WHITE BLOOD COUNT 8.5 K/mm3 (4.0-10.0)
[2023-12-29 09:23] LABS: POTASSIUM 3.4 mmol/L (3.5-5.1)
[2023-12-29 09:25] LABS: CALCIUM 10.2 mg/dL (8.5-10.1)
[2023-12-29 09:26] LABS: ALBUMIN 4.8 g/dl (3.4-5.0); BLOOD UREA NITROGEN 18.1 mg/dL (7-18); MAGNESIUM 1.9 mg/dL (1.8-2.4)
[2023-12-29 09:29] LABS: CREATININE 1.1 mg/dL (0.55-1.3); PHOSPHOROUS 2.7 mg/dL (2.5-4.9)
[2023-12-29 09:30] LABS: BILIRUBIN,TOTAL 1.2 mg/dL (0.2-1)
[2023-12-29 09:44] VITALS: BP 140/74; PULSE 76; RESP 76; TEMP 98
[2023-12-29] MEDS ORDERED: HALOPERIDOL LACTATE 5 MG/ML ONE (10:06)
[2023-12-29] MEDS: HALOPERIDOL LACTATE 5 MG/ML IM ONE (10:10)
== END 2023-12-29 14:19 | disposition home or self-care (01) ==
LOC: JER 08:07
PROC: 3E033GC Introduction of Other Therapeutic Substance into Peripheral Vein, Percutaneous Approach (ICD-10-PCS; principal; 2023-12-29)
PROC: 3E033NZ Introduction of Analgesics, Hypnotics, Sedatives into Peripheral Vein, Percutaneous Approach (ICD-10-PCS; 2023-12-29)
PROC: 3E033GC Introduction of Other Therapeutic Substance into Peripheral Vein, Percutaneous Approach (ICD-10-PCS; 2023-12-29)
PROC: 3E023GC Introduction of Other Therapeutic Substance into Muscle, Percutaneous Approach (ICD-10-PCS; 2023-12-29)
DX: R11.2 Nausea with vomiting, unspecified (principal); R10.84 Generalized abdominal pain; R19.7 Diarrhea, unspecified; R50.9 Fever, unspecified
CPT/HCPCS: 36415; 74177-TC; 80053; 83690; 83735; 84100; 85025; 93005; 93010; 99285-25; J0131; Q9967

== ENCOUNTER 2024-04-15 14:39 | Emergency (ER) | payer BC ==
[2024-04-15 14:52] VITALS: PULSE 59; RESP 19; TEMP 97.9; BMI 21.9
[2024-04-15 14:53] VITALS: BP 144/88
[2024-04-15] MEDS ORDERED: HALOPERIDOL LACTATE 5 MG/ML ONE (15:48)
[2024-04-15] MEDS: HALOPERIDOL DECANOATE 100 MG/ML IM ONE (15:51)
== END 2024-04-15 17:58 | disposition home or self-care (01) ==
LOC: JER 14:39
PROC: 3E023GC Introduction of Other Therapeutic Substance into Muscle, Percutaneous Approach (ICD-10-PCS; principal; 2024-04-15)
DX: R10.84 Generalized abdominal pain (principal); R11.15 Cyclical vomiting syndrome unrelated to migraine
CPT/HCPCS: 99284-25